=== PATIENT | female | born 1960 | race Caucasian/White ===

== ENCOUNTER 2022-11-18 14:36 | Outpatient (CLI) | payer BC ==
[2022-11-18 16:39] LABS: #Eosinphils 0.2 10x3/uL (0.0-0.5); #Monocytes 0.6 10x3/uL (0.0-1.1); #Neutrophils 3.4 10x3/uL (1.5-8.4); %Basophils 0.6 % (0.0-2.0); %Eosinophils 2.2 % (0.0-6.0); %Monocytes 8.8 % (0.0-10.0); %Neutrophils 47.1 % (40.0-75.0); Hematocrit 40.9 % (34.9-44.5); Hemoglobin 13.6 g/dL (12.0-15.5); Mean Corpuscular HGB CONC 33.3 g/dL (32.0-36.0); Mean Corpuscular Hemoglobin 31.6 pg (27.0-33.0); Mean Corpuscular Volume 95.1 fl (81.6-98.3); Mean Platelet Volume 9.1 fl (7.4-10.4); Platelet Count 318 10x3/uL (150-450); RBC Distribution Width 14.2 % (11.5-14.5); White Blood Cell (WBC) Count 7.2 10x3/uL (3.5-10.5)
[2022-11-18 17:08] LABS: Anion Gap 16 mmol/L (10-20); BUN (Urea Nitrogen) 17 mg/dL (9.8-20.1); Calc. Creatinine Clearance 0 mL/min (70-130); Calcium 9.7 mg/dL (7.8-10.44); Carbon Dioxide 19 mmol/L (23-31); Chloride 109 mmol/L (98-107); Estimated GFR 94; Glucose 96 mg/dL (80-115); Potassium 4.4 mmol/L (3.5-5.1); Sodium 140 mmol/L (136-145)
== END 2022-11-18 14:37 | disposition home or self-care (01) ==
LOC: LABBT 14:36
PROVIDERS: ATTEND Orthopaedic Surgery
DX: Z01.818 Encounter for other preprocedural examination (principal); M19.011 Primary osteoarthritis, right shoulder
CPT/HCPCS: 80048; 85025; 93005; 93010

== ENCOUNTER 2022-11-21 06:02 | Observation (INO) | payer BC ==
[2022-11-18 15:03] VITALS: BMI 29.5
[2022-11-21] MEDS ORDERED: Tranexamic Acid 1,000 MG/10 ML VIAL ONE (06:42)
[2022-11-21] MEDS ORDERED: Sodium Chloride 0.9% 100 ML ONE ×2 (06:42→07:08)
[2022-11-21] MEDS ORDERED: Scopolamine 1.5 mg/72 hour Patch ONE (06:53)
[2022-11-21] MEDS ORDERED: Midazolam HCl 2 mg/2 ml Vial ONE (06:55)
[2022-11-21] MEDS ORDERED: fentaNYL 50 mcg/mL 1 mL Vial ONE (06:55)
[2022-11-21] MEDS ORDERED: Ropivacaine 0.5% HCl/PF (150 MG/30 ML VIAL) ONE (06:56)
[2022-11-21] MEDS ORDERED: fentaNYL PF 100 MCG/2 ML SYRINGE ONE (07:01)
[2022-11-21] MEDS ORDERED: Promethazine HCl 25 MG/ML VIAL ONE ×2 (07:02→09:31)
[2022-11-21] MEDS ORDERED: Dexmedetomidine 200 MCG/2 ML VIAL ONE (07:02)
[2022-11-21] MEDS ORDERED: CEFAZOLIN 2 GM VIAL ONE (07:08)
[2022-11-21] MEDS ORDERED: HYDROcodone/Acetaminophen 10/325 mg Tablet PO PRN ×3 (07:20→08:00)
[2022-11-21] MEDS ORDERED: ePHEDrine Sulfate 50 MG/10 ML VIAL ONE (07:35)
[2022-11-21] MEDS ORDERED: Lidocaine 1% PF 5 ML VIAL ONE (07:35)
[2022-11-21] MEDS ORDERED: PROPOFOL 200 MG/20 ML VIAL ONE (07:35)
[2022-11-21] MEDS ORDERED: Dexamethasone 20 MG/5 ML VIAL ONE (07:35)
[2022-11-21] MEDS ORDERED: Ketorolac Tromethamine 30 MG/ML VIAL ONE (07:35)
[2022-11-21] MEDS ORDERED: Ondansetron PF 4 MG/2 ML Vial ONE (07:35)
[2022-11-21] MEDS ORDERED: Rocuronium Bromide 10 MG/ML (10ML VIAL) ONE (07:35)
[2022-11-21] MEDS ORDERED: fentaNYL 50 mcg/mL 1 mL Vial SLOW IVP PRN (07:52)
[2022-11-21] MEDS ORDERED: Promethazine HCl 25 MG/ML VIAL IM PRN ×2 (08:00→09:49)
[2022-11-21] MEDS ORDERED: Ropivacaine 0.2% 550 ML 550 ML NERVE BLCK SCH (08:00)
[2022-11-21] MEDS ORDERED: Zolpidem Tartrate 5 MG TAB PO PRN (08:00)
[2022-11-21] MEDS ORDERED: traMADol HCl 50 MG TAB PO PRN ×2 (08:00)
[2022-11-21] MEDS ORDERED: Ondansetron PF 4 MG/2 ML Vial IVP PRN (08:00)
[2022-11-21] MEDS: Calcium Carbonate 500 MG ChewTAB PO SCH ×2 (09:00→21:19)
[2022-11-21] MEDS: Multivitamin W/ Minerals 1 TAB PO SCH (09:00)
[2022-11-21] MEDS: sulfaSALAzine 500 MG TAB PO SCH ×2 (09:00→21:19)
[2022-11-21] MEDS: CeleCOXIB 100 MG CAP PO SCH (09:00)
[2022-11-21] MEDS ORDERED: Apremilast [Otezla] 30 MG Tablet PO SCH (09:00)
[2022-11-21] MEDS: Magnesium Oxide 250 MG TAB PO SCH (09:00)
[2022-11-21] MEDS: Folic Acid 1 MG TAB PO SCH ×2 (09:00→21:20)
[2022-11-21] MEDS ORDERED: SUGAMMADEX SODIUM 200 MG/2 ML VIAL ONE (09:11)
[2022-11-21] MEDS ORDERED: Ondansetron HCl/PF 4 MG/2 ML Vial IVP PRN (09:49)
[2022-11-21] MEDS ORDERED: Ketorolac Tromethamine 30 MG/ML VIAL IVP SCH (12:00)
[2022-11-21] MEDS: HYDROcodone/Acetaminophen 10/325 mg Tablet PO PRN (15:29)
[2022-11-21] MEDS: CEFAZOLIN 2 GM in Sodium Chloride 0.9% 100 ML IVPB SCH ×2 (15:31→23:23)
[2022-11-21] MEDS: Dextrose 5 %-0.45 % NaCl 1,000 ML IV SCH ×2 (15:31→23:24)
[2022-11-21] MEDS ORDERED: tiZANidine HCl 4 MG TAB PO SCH (21:00)
[2022-11-22] MEDS: HYDROcodone/Acetaminophen 10/325 mg Tablet PO PRN ×2 (02:37→03:57)
[2022-11-22 07:53] VITALS: TEMP 98.1
[2022-11-22] MEDS: Magnesium Oxide 250 MG TAB PO SCH (08:02)
[2022-11-22] MEDS: Calcium Carbonate 500 MG ChewTAB PO SCH (08:02)
[2022-11-22] MEDS: Folic Acid 1 MG TAB PO SCH (08:03)
[2022-11-22] MEDS: Multivitamin W/ Minerals 1 TAB PO SCH (08:03)
[2022-11-22] MEDS: sulfaSALAzine 500 MG TAB PO SCH (08:03)
[2022-11-22] MEDS: CeleCOXIB 100 MG CAP PO SCH (08:54)
[2022-11-22] MEDS ORDERED: Ketorolac Tromethamine 30 MG/ML VIAL IVP SCH (09:30)
[2022-11-22 10:51] VITALS: BP 101/66
[2022-11-22] MEDS ORDERED: Bupivacaine PF 0.5% 30 ML VIAL ONE (11:16)
[2022-11-24] MEDS ORDERED: Methotrexate Sodium 2.5 MG TAB PO SCH (09:00)
[2022-11-25] MEDS ORDERED: Leucovorin Calcium 5 MG TAB PO SCH (09:00)
== END 2022-11-22 11:05 | disposition home or self-care (01) ==
LOC: SDC 06:02 → SURG A 07:20
PROVIDERS: ADMIT Orthopaedic Surgery; ATTEND Orthopaedic Surgery
PROC: 0RRJ00Z Replacement of Right Shoulder Joint with Reverse Ball and Socket Synthetic Substitute, Open Approach (ICD-10-PCS; principal; 2022-11-21)
DX: M12.811 Other specific arthropathies, not elsewhere classified, right shoulder (principal); Z87.891 Personal history of nicotine dependence; Z88.6 Allergy status to analgesic agent; Z88.1 Allergy status to other antibiotic agents; Z90.710 Acquired absence of both cervix and uterus; Z96.651 Presence of right artificial knee joint
CPT/HCPCS: A4306; C1713; C1776; J1100; J1885; J2250; J2405; J2550; J2704; J2795; J3010; J3490; J7042; S0020